=== PATIENT | female | born 1995 | race Caucasian/White ===

== ENCOUNTER 2018-02-28 19:07 | Emergency (ER) | payer MEDICAID ==
[~2018-02-28] VITALS: Ht 154.9 cm; Wt 53.5 kg
[2018-02-28 22:08] VITALS: BP 110/67
== END 2018-02-28 22:16 | disposition home or self-care (01) ==
LOC: ED 19:07
DX: N39.0 Urinary tract infection, site not specified (principal)
CPT/HCPCS: 87491; 87591